=== PATIENT | female | born 2000 | race Caucasian/White ===

== ENCOUNTER 2020-11-26 13:27 | Inpatient (IN) | payer BC ==
[~2020-11-26] VITALS: Ht 170.2 cm; Wt 67.7 kg
[2020-11-26 14:00] VITALS: BP 124/78; PULSE 90; TEMP 98.2
[2020-11-26] MEDS ORDERED: PRENATAL TABLET PO (17:00)
--- NOTE | 2020-11-26 18:45 | NUR ---
Report recieved. Finishing dinner at this time. Pre-Op nurse at bedside with orders for patient to go back to surgery. Dr. Diallo called and told staff nurse that he would be up to see the patient momentarily.
[2020-11-26 19:00] VITALS: BP 122/82; PULSE 104; TEMP 98.1
--- NOTE | 2020-11-26 19:00 | NUR ---
Attempt to find heart tones at this time. Unable to detect. Khang Browning R.N. to bedside at 1940 to attmept to obtain heart tones; unable to detect. 2099 Farhana Lopez to bedside to attempt ot obtain heart tones; unable to detect. Dr. Pedro notified at 2114 of inability to obtain heart tones; requested to attempt one more time. Khang Browning to bedside, patient voided and laid flat. heart tones [address] Pedro notified immediately after obtaining heart tones. No new orders recieved.
[2020-11-27] VITALS (8 sets, daily range): BP systolic 99–112; BP diastolic 52–80; PULSE 68–102; TEMP 97.8
--- NOTE | 2020-11-27 09:23 | NUR ---
Initial visit attempt; Family resting, Senior Staff Accountant left card of congratulations and information regarding the availability of spiritual care at our hospital.
--- NOTE | 2020-11-27 12:40 | NUR ---
PER DR SUERO NO CONTRAST DYE SEEN IN LEFT URETER. CANNOT TELL FOR SURE IF THERE IS A STONE AND IF THERE IS IT IS VERY SMALL. NOTHING OBVIOUS SEEN ON KUB.
--- NOTE | 2020-11-27 14:55 | NUR ---
PT TO OPERATING ROOM AT THIS TIME.
--- NOTE | 2020-11-27 16:25 | NUR ---
PT RETURNS FROM THE OR AND PACU. AWAKE AND ALERT. CAN MOVE RIGHT FOOT/TOES A LITTLE BUT NOT LEFT FOOT AT THIS TIME. SPINAL LEVEL AT T12. NO REPORTS OF PAIN AT THIS TIME. DRINKING WATER AND GOING TO ORDER SUPPER.
--- NOTE | 2020-11-27 16:55 | NUR ---
REPORTING SOME CRAMPING/PAIN ON LEFT FLANK. ONE NORCO GIVEN.
--- NOTE | 2020-11-27 17:25 | NUR ---
PT REPORTING INCREASING PAIN IN HER LEFT SIDE AND ALSO FEELING A LITTLE NAUSEATED BECAUSE OF THE PAIN. SECOND NORCO 5MG TO BE GIVEN. ALSO WILL OBTAIN AN ORDER FOR NAUSEA MEDICINE.
--- NOTE | 2020-11-27 17:25 | NUR ---
CRYING AND MOANING IN PAIN. CALLED DR EL AT [phone] AND RECEIVED ORDER TO GIVE MORPHINE 2MG IV FOR PAIN AND ZOFRAN 4MG FOR NAUSEA
--- NOTE | 2020-11-27 17:55 | NUR ---
REPORTS SHE IS STILL IN QUITE A BIT OF PAIN. THINKS THE MORPHINE MAY HAVE HELPED A LITTLE BIT.
[2020-11-28 00:05] VITALS: BP 97/57; PULSE 89; TEMP 98.3
[2020-11-28 06:45] VITALS: BP 97/47; PULSE 77; TEMP 98.6
--- NOTE | 2020-11-28 08:15 | NUR ---
Unable to get heart tones with doppler. Dr. Nava here with ultra sound machine. heart tones 150.
[2020-11-28] MEDS ORDERED: PERCOCET 325 MG1 TA2 PO (09:30)
[2020-11-28 16:00] VITALS: BP 100/56; PULSE 78; TEMP 99.2
--- NOTE | 2020-11-28 20:15 | NUR ---
IV out at this time. Pain medication given, see MAR. Prescription given. Discharge instructions reviewed with patient, pt verbalized understanding. Pt off unit in wheelchair accompanied by Patience fairchild.
== END 2020-11-28 20:15 | disposition home or self-care (01) | DRG 818 ==
LOC: COL.ER 13:27 → SDCO 13:30 → COL.ER 13:30 → SDCO 13:30 → EDSTATUS 13:32 → OB 14:08
PROVIDERS: ADMIT Urology
PROC: 0TC78ZZ Extirpation of Matter from Left Ureter, Via Natural or Artificial Opening Endoscopic (ICD-10-PCS; principal; 2020-11-27 15:30)
DX: O26.831 Pregnancy related renal disease, first trimester (principal); N13.2 Hydronephrosis with renal and ureteral calculous obstruction; Z3A.12 12 weeks gestation of pregnancy; Z88.1 Allergy status to other antibiotic agents
CPT/HCPCS: C1769; G0378; J2270; J2405; J7120; Q9967

== ENCOUNTER → 2021-01-03 | Outpatient (CLI) | payer BC ==
[~2021-01-03] MED LIST: PERCOCET 325 MG1 TA2 PO; PRENATAL TABLET PO
== END ==
LOC: COL.RAD 08:01
DX: N20.0 Calculus of kidney (principal)

== ENCOUNTER 2021-05-06 18:34 | Outpatient (CLI) | payer BC ==
[~2021-05-06] VITALS: Ht 172.7 cm; Wt 77.3 kg
[2021-05-06 18:43] VITALS: BP 113/63; PULSE 87; TEMP 98.3
--- NOTE | 2021-05-06 20:31 | NUR ---
PATIENT IS CLOSED THICK AND HIGH. DR. VALDIVIA NOTIFIED OF EXAM. PATIENT WILL DISCHARGE HOME PER DOCTORS ORDERS.
== END 2021-05-06 20:21 | disposition home or self-care (01) ==
LOC: LDRO 18:34
DX: O62.9 Abnormality of forces of labor, unspecified (principal); Z3A.35 35 weeks gestation of pregnancy

== ENCOUNTER 2021-06-03 08:20 | Outpatient (CLI) | payer BC ==
[~2021-06-03] VITALS: Ht 170.2 cm; Wt 80.5 kg
--- NOTE | 2021-06-03 08:25 | NUR ---
Patient ambulatory to LR3, changed into gown, FHR/TOCO monitors placed and explained. Patient states "I noticed some bright red blood in my underwear and some bloody show when I wiped, having some pain on my left side, especially when baby moves". Patient denies any leaking of fluid/regular contractions/decreased movement. Plan of care discussed and questions answered. 0830: SVE lauren Neves RN-/-3 and amniotest negative and scant amount of pink bloody show on glove noted. Patient updated on plan of care.
[2021-06-03] MEDS ORDERED: COLACE 100100 MG/CAP PO (08:29)
[2021-06-03 08:45] VITALS: BP 130/74; PULSE 96; TEMP 98.6
[2021-06-03 09:15] VITALS: BP 111/59; PULSE 79
--- NOTE | 2021-06-03 09:32 | NUR ---
LILIANA Pryor RN- unchanged at /-3 0935: Patient off monitors to change. Discharge instructions discussed and patient verbalizes understanding. 0940: Ambulates off unit with spouse.
[2021-06-03 09:35] VITALS: BP 104/57; PULSE 81
== END 2021-06-03 09:40 | disposition home or self-care (01) ==
LOC: LDRO 08:20 → LDR 08:34 → LDRO 09:40
DX: O46.93 Antepartum hemorrhage, unspecified, third trimester (principal); Z3A.39 39 weeks gestation of pregnancy
CPT/HCPCS: OP

== ENCOUNTER 2021-06-05 11:00 | Outpatient (CLI) | payer BC ==
[~2021-06-05] VITALS: Ht 170.2 cm; Wt 79.1 kg
[~2021-06-05 11:00] MED LIST changes: +COLACE 100100 MG/CAP PO
--- NOTE | 2021-06-05 11:00 | NUR ---
Admits to L&D, ambulatory, with c/o blood in underwear and decreased movement. Reports some contractions, but "not enough to time them. I was just concerned about the bleeding." Reports her cervix was checked in office yesterday, and she had sexual intercourse yesterday. Discussed manipulation of cervix can cause some spotting to occur. Verbalizes understanding. States she wasn't concerned about decreased movement until the nurse she spoke with over the phone asked her about it, and then she got scared.
[2021-06-05 11:05] VITALS: BP 109/64; PULSE 82; TEMP 98.3
[2021-06-05] MEDS ORDERED: UNISOM25 MG PO (11:40)
[2021-06-05 12:10] VITALS: BP 119/57; PULSE 83
== END 2021-06-05 12:25 | disposition home or self-care (01) ==
LOC: LDRO 11:00 → ZCOL.LAB 06-11 06:47
DX: O36.8130 Decreased fetal movements, third trimester, not applicable or unspecified (principal); Z3A.39 39 weeks gestation of pregnancy

== ENCOUNTER 2021-06-06 00:47 | Inpatient (IN) | payer BC ==
[~2021-06-06] VITALS: Ht 170.2 cm; Wt 79.5 kg
[2021-06-06] VITALS (33 sets, daily range): BP systolic 102–142; BP diastolic 55–99; PULSE 85–110; TEMP 98–99.2
[~2021-06-06 00:47] MED LIST changes: +UNISOM25 MG PO
--- NOTE | 2021-06-06 00:55 | NUR ---
Patient ambulatory to LR5 with spouse, changed into gown, FHR/TOCO monitors placed and explained. Patient states "was here earlier today due to some bleeding and was sent home, this evening contractions have became more regular and more painful". Patient denies any leaking of fluid, vaginal bleeding, or leaking of fluid. Plan of care discused. 0105: LILIANA Tucker RN [phone]/-2.
--- NOTE | 2021-06-06 02:00 | NUR ---
SVE Unchanged. Pt hurting and wanting to stay another hour due to living in [facility]. Okay per . Pt off monitors to use restroom. 0300: SVE remains unchanged. Pt starting to shake and really breath through contractions. Pt wanting to stay another hour to ambulate in room or hallway. 0345: Pt grunting through contractions SVE 5/90/-2. Pt requesting epidural at this time. 0400: called and updated on pt. Admit orders received. See physican notification. 0410: IV started and labs obtained via IV site. LR bolus infusing without difficulty. 0415: C.Modesta TITLE ABSTRACTOR at bedside for epidural. Procedure explained. Pt assisted to edge of bed for placement. Difficulty tracing FHR due to maternal position. Pulse ox applied 0422: Single shot administered per C.Modesta TITLE ABSTRACTOR. See anethesia records. 0428: Pt repositioned to wedge left. Plan of care and safety precautions explained. Call light within reach. 0510: Curtis inserted without difficulties. SVE 6/90/-2.
[2021-06-06 04:36] LABS: BASO % 0.2 % (0.0-2.0); EOS % 0.2 % (0-4.0); GRAN # 9.3 (1.4-6.5); GRAN % 76.2 % (42.2-75.2); HEMOGLOBIN 12.6 g/dl (12.5-16.0); LYMPH # 1.8 (1.2-3.4); LYMPH % 14.5 % (20.0-51.0); MEAN CELL VOLUME 90 fl (80.0-100.0); MEAN CORPUSCULAR HEMOGLOBIN 31 pg (27.0-31.0); MEAN CORPUSCULAR HGB CONC 35 g/dl (33.0-37.0); MEAN PLATELET VOLUME 9.1 fl (7.4-10.4); MONO % 8.3 % (1.7-9.3); PLATELET COUNT 264 K/mm3 (130-400); RED BLOOD COUNT 4.04 M/mm3 (4.10-5.30); REDCELL DISTRIBUTION WIDTH-CV 12.9 % (11.5-14.5)
[2021-06-06 04:43] LABS: HEMATOCRIT 36.3 % (37.0-47.0)
--- NOTE | 2021-06-06 10:15 | NUR ---
@ 0937 SVE DONE DUE TO PATIENT C/O INCREASE IN RECTAL PRESSURE. CERVIX COMPLETE AND +2 STATION. AFTER COLIN REMOVAL, PATIENT ASSISTED TO BEGIN PUSHING AT 0941. BABY CROWNS UP WELL. PT INSTRUCTED TO STOP PUSHING @ 0944. DR EL ARRIVES TO ROOM FOR DELIVERY @ 0954. PATIENT BEGINS PUSHING AGAIN AT 0953. DELIVERY OF FEMALE @ 0958. SPONTANEOUS DELIVERY OF PLACENTA @ 1002.
--- NOTE | 2021-06-06 11:30 | NUR ---
PATIENT STAND BY ASSIST TO AMBULATE TO BATHROOM FOR VOID. ABLE TO VOID SPONTANEOUSLY. INSTRUCTED ON USE OF LORI BOTTLE AND WITCH PERRY PADS. UPON AMBULATION BACK TO BED, PT C/O MILD DIZZINESS. ASSISTE TO SUPINE POSITION, VITAL SIGNS TAKEN. PT STATES DIZZINESS SUBSIDED AFTER SEVERAL MINUTES. @ 1240, PATIENT DENIES ANY FURTHER DIZZINESS. ASSISTED TO WHEELCHAIR AND TAKEN TO POST ROOM 212. INSTRUCTED TO CALL FOR NEXT TO VOIDS AND NOT TO AMBULATE BY SELF.
--- NOTE | 2021-06-06 13:30 | NUR ---
AMBULATED TO BATHROOM WITH STANDBY ASSIST. PATIENT DENIES ANY DIZZINESS OR DIFFICULTY WALKING. ABLE TO VOID LARGE AMOUNT SPONTANEOUSLY
[2021-06-07 00:30] VITALS: BP 106/59; PULSE 82; TEMP 98
[2021-06-07 04:30] VITALS: BP 112/61; PULSE 84; TEMP 97.7
[2021-06-07 08:40] VITALS: BP 125/71; PULSE 82; TEMP 97.6
[2021-06-07] MEDS ORDERED: IBU600 MG PO (08:50)
== END 2021-06-07 13:05 | disposition home or self-care (01) | DRG 807 ==
LOC: LDRO 00:47 → LDR 04:06 → OB 12:45
PROVIDERS: Obstetrics & Gynecology; ADMIT Obstetrics & Gynecology
PROC: 10E0XZZ Delivery of Products of Conception, External Approach (ICD-10-PCS; principal; 2021-06-06)
PROC: 0KQM0ZZ Repair Perineum Muscle, Open Approach (ICD-10-PCS; 2021-06-06)
PROC: 10907ZC Drainage of Amniotic Fluid, Therapeutic from Products of Conception, Via Natural or Artificial Opening (ICD-10-PCS; 2021-06-06)
DX: O99.02 Anemia complicating childbirth (principal); Z37.0 Single live birth; Z3A.39 39 weeks gestation of pregnancy; O70.1 Second degree perineal laceration during delivery; D64.9 Anemia, unspecified
CPT/HCPCS: J2590; J7120